=== PATIENT | male | born 1970 | race Caucasian/White ===

== ENCOUNTER 2018-08-30 09:48 | Emergency (ER) | payer OTHER ==
[~2018-08-30] VITALS: Ht 180.3 cm; Wt 101.2 kg
[2018-08-30] MEDS ORDERED: CIPR-249 PO (10:01)
[2018-08-30] MEDS ORDERED: LISI10TA4 PO (10:01)
[2018-08-30] MEDS ORDERED: METR375C3 PO (10:01)
[2018-08-30] MEDS ORDERED: OXYC1TAB23 PO (10:01)
[2018-08-30] MEDS ORDERED: NS 1,000 ML IV ONE (10:30)
[2018-08-30] MEDS ORDERED: KETOROLAC 30 MG/ML VIAL (J1885) IV ONE (10:30)
[2018-08-30 10:50] LABS: BASO % 0.4 % (0.0-1.0); EOS # 0.1 10^3/uL (0.0-0.50); EOS % 0.7 % (0.0-3.0); HEMATOCRIT 45.1 % (42.0-52.0); HEMOGLOBIN 15.5 g/dl (13.5-17.5); LYMPH # 1.9 10^3/uL (1.5-4.5); LYMPH % 16.9 % (24.0-44.0); MEAN CORPUSCULAR HEMOGLOBIN 30.6 pg (27.0-33.0); MEAN CORPUSCULAR HGB CONC 34.4 g/dl (32.0-36.5); MONO # 0.5 10^3/uL (0.0-0.8); MONO % 4.9 % (0.0-5.0); NEUTROPHILS # 8.4 10^3/uL (1.8-7.7); NEUTROPHILS % 76.4 % (36.0-66.0); PLATELET COUNT, AUTOMATED 204 10^3/uL (150-450); RED BLOOD COUNT 5.07 10^6/uL (4.30-6.10)
[2018-08-30 11:25] LABS: ALBUMIN 3.7 GM/DL (3.2-5.2); ALT/SGPT 35 U/L (12-78); AMYLASE 73 U/L (25-115); BILIRUBIN,DIRECT 0.1 MG/DL (0.0-0.2); BILIRUBIN,TOTAL 0.7 MG/DL (0.2-1.0); BLOOD UREA NITROGEN 12 MG/DL (7-18); CALCIUM LEVEL 8.9 MG/DL (8.5-10.1); CARBON DIOXIDE LEVEL 27 MEQ/L (21-32); CHLORIDE LEVEL 107 MEQ/L (98-107); CREATININE FOR GFR 1.05 MG/DL (0.70-1.30); GLOMERULAR FILTRATION RATE > 60.0 (>60); GLUCOSE, FASTING 108 MG/DL (70-100); LIPASE 265 U/L (73-393); POTASSIUM SERUM 3.8 MEQ/L (3.5-5.1); SODIUM LEVEL 139 MEQ/L (136-145); TOTAL PROTEIN 7.4 GM/DL (6.4-8.2)
--- NOTE | 2018-08-30 12:19 | REP ---
SCROTAL ULTRASOUND: Real-time sonographic evaluation of the scrotum and contents performed. Right testicle measures 4. 6 x 2.7 x 3.1 cm. Left testicle measures 4.2 x 2.3 x 3.3 cm. Blood flow is seen in each testicle with resistive index right testicle 0.65 and left testicle 0.57. However, there is an oval area of hypoechoic echotexture in the upper left testicle which measures 2.7 x 1.3 x 2.0 cm. There is no blood flow identified within this area with duplex Doppler evaluation. There is surrounding hyperemia. No abnormal echotexture is seen in the right testicle. There is a cyst in the head of the left epididymis measuring 3 mm. There is a left-sided varicocele. IMPRESSION: Oval area of hypoechoic echotexture in the upper left testicle measuring 2.7 x 1.3 x 2.0 cm, with no significant internal blood flow. There is surrounding hyperemia in the left testicle. This could possibly represent a testicular mass, although the area appears relatively hypovascular. Alternatively, this could represent a focal area of testicular ischemia. Recommend clinical correlation and followup. Electronically Signed by Pancho Lopez MD 08/31/2018 12:16 P
[2018-08-30] MEDS ORDERED: IBUP80TA PO (12:40)
[2018-08-30 12:45] VITALS: BP 162/86
[2018-08-30 13:18] LABS: CHLAMYDIA DNA AMPLIFICATION NEGATIVE (NEGATIVE); GC DNA AMPLIFICATION NEGATIVE (NEGATIVE)
--- NOTE | 2018-09-03 15:17 | ED PDOC ---
Post-Departure Follow-Up dr hernandez faxed formal report of scrotal us for fu Angelita Heard MD September 03, 2018 15:17
== END 2018-08-30 12:51 | disposition home or self-care (01) ==
LOC: M ED 09:48
DX: N50.812 Left testicular pain (principal); I10 Essential (primary) hypertension; Z87.19 Personal history of other diseases of the digestive system; Z79.899 Other long term (current) drug therapy; F17.210 Nicotine dependence, cigarettes, uncomplicated
CPT/HCPCS: 76870; 80048; 80076; 81001; 82150; 83690; 85025; 87086; 87491; 87591; 93976; 96361; 96375; 99284; J1885

== ENCOUNTER → 2018-08-31 | Outpatient (CLI) | payer OTHER ==
[~2018-08-31] MED LIST: CIPR-249 PO; IBUP80TA PO; LISI10TA4 PO; METR375C3 PO; OXYC1TAB23 PO
[2018-08-31 13:34] LABS: LDH LACTATE DEHYDROGENASE 222 U/L (87-241)
== END ==
LOC: M SMT 10:25
PROVIDERS: ATTEND Nurse Practitioner Women's Health
DX: N50.9 Disorder of male genital organs, unspecified (principal)

== ENCOUNTER → 2018-09-13 | Outpatient (CLI) | payer OTHER ==
--- NOTE | 2018-09-14 16:40 | REP ---
Clinical: Follow up left testicular mass. Technique: Real time turcios scale and color Doppler evaluation using linear high frequency transducer. Comparison: 08/30/2018. Findings: Left testicle measures 4.4 x 2.5 x 2.7 cm again containing a complex solid mass-like hypoechoic avascular area with surrounding hyperemia measuring 2.7 x 1.8 x 2.2 cm now demonstrating very minimal cystic areas but otherwise unchanged. Incidental 3.8 mm left epididymal head cyst and left-sided varicoceles measuring up to 4 mm diameter are again noted. The right testicle and epididymis are normal in appearance. Right testicle measures 4.4 x 2.4 x 2.9 cm. A small right hydrocele noted. No varicoceles. Impression: Suspected relatively stable hypoechoic mass in the left testicle with surrounding hyperemia. Electronically Signed by Rito Nichole MD 09/14/2018 04:32 P
== END ==
LOC: M RAD 10:54
PROVIDERS: ATTEND Nurse Practitioner Women's Health
DX: N50.9 Disorder of male genital organs, unspecified (principal)

== ENCOUNTER → 2018-12-05 | Outpatient (CLI) | payer OTHER ==
--- NOTE | 2018-12-06 05:40 | REP ---
Clinical: Testicular mass. Comparison: 09/13/2018. Technique: Real time turcios scale and color Doppler evaluation using linear high frequency and curved array transducers. Findings: Right testicle and epididymis appear relatively normal / stable including a small right epididymal head cyst with septation measuring 4 mm maximal diameter. The right testicle measures 4.6 x 2.5 x 3.2 cm and demonstrates normal vascularity without torsion, infectious/inflammatory process or mass. Left testicle measures 3.8 x 1.9 x 2.4 cm and again demonstrates a 1.2 x 1.1 x 1.9 cm hypoechoic relatively well-defined area within the superior aspect which demonstrates surrounding hyperemia and suggestions for small central cyst and minimal internal vascularity. Lesion is not significantly changed from prior examinations. Stable left epididymal head cyst measuring approximately 3 mm along with stable left-sided varicoceles measuring 4 mm maximal diameter on Valsalva. No significant hydrocele. Impression: 1. Hypoechoic mass-like area within the left testicle with surrounding hyperemia and small amounts of internal vascularity essentially unchanged in appearance compared to prior examination. Mass/malignancy cannot be excluded. 2. Stable left-sided varicoceles measuring up to 4 mm. 3. Stable incidental epididymal cysts. Electronically Signed by Rito Nichole MD 12/06/2018 05:32 A
== END ==
LOC: M RAD 15:27
PROVIDERS: ATTEND Urology
DX: N50.9 Disorder of male genital organs, unspecified (principal); I86.1 Scrotal varices; N50.3 Cyst of epididymis

== ENCOUNTER → 2018-12-24 | Outpatient (CLI) | payer OTHER | LOC: M SMT 14:46 | PROVIDERS: ATTEND Urology | DX: N50.9 Disorder of male genital organs, unspecified (principal) ==

== ENCOUNTER → 2019-07-09 | Outpatient (CLI) | payer OTHER ==
--- NOTE | 2019-07-10 07:52 | REP ---
Clinical: Left testicular mass. Technique: Real time turcios scale and color Doppler evaluation using linear high frequency transducer. Comparison: 12/15/2018, 08/30/2018. Findings: The right testicle and epididymis appear normal in contour, size, echogenicity and vascularity without torsion, infectious/inflammatory process, or mass lesion. Right testicle measures 4.1 x 2.9 x 3.3 cm and the previously identified right epididymal cyst is not visualized. A small incidental right hydrocele is noted. No varicocele. The left testicle again demonstrates a somewhat vague 1.5 x 1.4 x 1.0 cm heterogeneous area along the upper pole without definable border or further abnormal findings. Left testicle measures 3.6 x 2.4 x 2.9 cm. Vascularity throughout the testicle including the irregular upper pole area appears relatively normal. No left-sided hydrocele. Stable left epididymal head cyst measures 4 mm. Left-sided varicoceles are again noted measuring up to approximately 4 mm diameter on Valsalva. Impression: 1. Vague heterogeneous area within the upper pole of the left testicle similar to prior examination is otherwise unremarkable. 2. Left epididymal head cyst and left-sided varicoceles unchanged. Electronically Signed by Rito Nichole MD 07/10/2019 07:43 A
== END ==
LOC: M RAD 17:07
PROVIDERS: ATTEND Urology
DX: N50.9 Disorder of male genital organs, unspecified (principal)

== ENCOUNTER → 2019-07-23 | Outpatient (REF) | payer OTHER ==
[2019-07-23 17:52] LABS: LDH LACTATE DEHYDROGENASE 183 U/L (87-241)
== END ==
LOC: M LABSMT 15:43
PROVIDERS: ATTEND Urology
DX: N50.9 Disorder of male genital organs, unspecified (principal)

== ENCOUNTER → 2020-07-27 | Outpatient (CLI) | payer OTHER ==
[~2020-07-27] MED LIST changes: +LISI10TA22 PO; -LISI10TA4 PO
--- NOTE | 2020-07-27 19:42 | REP ---
INDICATION: TESTICULAR MASS. COMPARISON: Comparison scrotal sonography July 09, 2019 and December 05, 2018. The oldest study in the electronic x-ray jacket is from August 30, 2018.. TECHNIQUE: High-resolution bilateral scrotal sonography. FINDINGS: Right testis remains homogeneous. No evidence of intratesticular lesion is noted on the right. Right testicular dimensions are 4.7 x 2.5 x 3.3 cm. Calculated volume 20 mL. Right epididymis is unremarkable. Testicular Doppler flow is normal in the right testis, resistive index 0.57. The left testis is somewhat smaller than the right measuring 3.7 x 2.3 x 2.5 cm, calculated volume 11 mL. The left epididymis is slightly thicker than the right. There is a 0.4 cm cyst in the left epididymis. Testicular Doppler flow is present with resistive index 0.51 on the left. However, there is again evidence of a focal hypoechoic area in the upper 3rd of the left testis which manifests significantly decreased Doppler flow. This has a wedge-shaped configuration today and is felt to be less extensive in smaller than originally seen in August of 2018. The lack of Doppler flow and lack of progression suggests that the lesion may be a focal testicular infarct. This hypoechoic area measures 0.5 x 0.9 x 1.2 cm. Originally, its dimensions were 2.7 x 1.3 x 2.0 cm. The overall volume loss of the left testis goes along with this. No new testicular mass lesion is seen on the left. There is a left-sided varicocele again noted. IMPRESSION: Gradual decrease in the size of the hypoechoic lesion in the upper pole the left testis. 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 There is a left-sided varicocele again noted. No new lesion is seen. No evidence of progression. <Electronically signed by Aj Duncan > 07/27/201937
== END ==
LOC: M RAD 12:56
PROVIDERS: ATTEND Urology
DX: N50.9 Disorder of male genital organs, unspecified (principal)